=== PATIENT | male | born 1950 | race Caucasian/White ===

== ENCOUNTER 2017-04-24 23:28 | Emergency (ER) | payer OTHER ==
[~2017-04-24] VITALS: Ht 188 cm; Wt 127.0 kg
--- NOTE | 2017-04-24 23:50 | NUR ---
PT PRESENTED TO THE ER WITH A C/O ALL OVER BODY RASH X 2 DAYS. PT APPLIED CALMOSEPTINE TO RASH. PT AMBULATED OUT WITH A STEADY GAIT.
[2017-04-25] MEDS ORDERED: predniSONE 20 MG TABLET ONE (00:29)
[2017-04-25] MEDS ORDERED: diphenhydrAMINE HCL 25 MG CAPSULE ONE (00:29)
[2017-04-25] MEDS ORDERED: predniSONE 20 MG TABLET PO ONE (00:30)
[2017-04-25] MEDS ORDERED: diphenhydrAMINE HCL 25 MG CAPSULE PO ONE (00:30)
--- NOTE | 2017-04-25 00:35 | NUR ---
Patient discharged to home in stable condition. Written and verbal after care instructions given. Patient verbalizes understanding of instruction AND RX. PT REC'D MEDICATION ORDERED. PT'S LLE WOUND CLEANED AND DRESSED WITH NON ADHERENT DRSG AND KERLEX. PT AMBULATED OUT WITH A STEADY GAIT. PT'S FRIEND IS DRIVING PT HOME. VSS.
[2017-04-25 00:47] VITALS: BP 148/78
== END 2017-04-25 00:35 | disposition home or self-care (01) ==
LOC: ER 23:34
DX: L25.9 Unspecified contact dermatitis, unspecified cause (principal)
CPT/HCPCS: 99283; A4606; A6402; J7512; Q0163; Z7610

== ENCOUNTER 2019-02-26 02:56 | Emergency (ER) | payer MEDICARE ==
[~2019-02-26] VITALS: Ht 188 cm; Wt 125.6 kg
[2019-02-26 03:05] VITALS: BP 154/66
--- NOTE | 2019-02-26 03:05 | NUR ---
PT BIBS. C/O "NIGHTMARE, ROLLED OUT OF BED. HIT HEAD ONTO NIGHTSTAND" -KO -SOB. -DIZZY. AOX4. AMBULATORY. NAD NOTED. RESP EVEN AND UNLABORED. PT ON MONITOR IN BED 1. WILL CONTINUE TO MONITOR.
[2019-02-26] MEDS ORDERED: TDAP [DIPH/PERTUSSIS/TET] 0.5 ML VIAL IM ONE ×2 (03:24→03:30)
--- NOTE | 2019-02-26 03:55 | NUR ---
PT TAKEN TO RADIOLOGY VIA [facility].
--- NOTE | 2019-02-26 04:10 | NUR ---
PT RETURNED FROM RADIOLOGY [facility]IA [address] [facility]. PT TOLERATED WELL.
--- NOTE | 2019-02-26 05:17 | NUR ---
Patient discharged to home in stable condition. Written and verbal after care instructions given. Patient verbalizes understanding of instruction. PT AMBULATORY WITH STEADY GAIT.
== END 2019-02-26 05:18 | disposition home or self-care (01) ==
LOC: ER 02:56
DX: S01.81XA Laceration without foreign body of other part of head, initial encounter (principal); I10 Essential (primary) hypertension; J45.909 Unspecified asthma, uncomplicated; R51 Headache; Z88.0 Allergy status to penicillin; Z99.2 Dependence on renal dialysis; W22.8XXA Striking against or struck by other objects, initial encounter; Y93.89 Activity, other specified; Y92.89 Other specified places as the place of occurrence of the external cause; Y99.8 Other external cause status
CPT/HCPCS: 12011; 70450; 90471; 90715; 99284; A6403

== ENCOUNTER 2020-04-09 09:20 | Emergency (ER) | payer MEDICARE, OTHER ==
[~2020-04-09] VITALS: Ht 188 cm; Wt 121.1 kg
--- NOTE | 2020-04-09 09:30 | NUR ---
+L LE shortening. +DP/PT was given Fentanyl by medics en route. Pt made aware of plan of care
[2020-04-09] MEDS ORDERED: IV NS 0.9% 500 ML BAG IV ONE (10:00)
[2020-04-09 10:08] LABS: BASOPHILS # (AUTO) 0.1 /CMM (0.0-0.2); BASOPHILS % (AUTO) 0.4 % (0.0-2.0); CALCIUM, SERUM 9.8 mg/dL (8.5-10.1); CARBON DIOXIDE 23 mmol/L (21-32); CHLORIDE 102 mmol/L (98-107); EOSINOPHILS % (AUTO) 1.3 % (0.0-6.0); GLUCOSE 99 mg/dL (74-106); HEMATOCRIT 32 % (39-51); HEMOGLOBIN 10.2 g/dL (13.5-17.5); LYMPHOCYTES # (AUTO) 0.6 /CMM (0.8-4.8); LYMPHOCYTES % (AUTO) 4.8 % (20.0-44.0); MEAN CORPUSCULAR HGB CONC 32 g/dl (31.0-36.0); MEAN CORPUSCULAR VOLUME 82 fL (80-96); MONOCYTES # (AUTO) 0.5 /CMM (0.1-1.30); MONOCYTES % (AUTO) 4.5 % (2.0-12.0); NEUTROPHILS # (AUTO) 10.4 /CMM (1.8-8.9); PLATELET COUNT (AUTO) 376 /CMM (150-450); POTASSIUM 4.3 mmol/L (3.5-5.1); RED BLOOD CELL COUNT(AUTO) 3.94 MIL/uL (4.5-6.0); SODIUM SERUM 139 mmol/L (136-145); UREA NITROGEN, BLOOD 61 mg/dL (7-18); WHITE BLOOD COUNT (AUTO) 11.6 K/uL (4.3-11.0)
[2020-04-09 10:13] LABS: ALANINE AMINOTRANSFERASE 20 U/L (12-78); ALBUMIN 3.5 g/dL (3.4-5.0); ALKALINE PHOSPHATASE 250 U/L (46-116); ASPARTATE AMINOTRANSFERASE 34 U/L (15-37); BILIRUBIN,DIRECT 0.1 mg/dL (0.0-0.2); BILIRUBIN,TOTAL 0.3 mg/dL (0.2-1.0); LIPASE 170 U/L (73-393); TOTAL PROTEIN, SERUM 7.9 g/dL (6.4-8.2)
[2020-04-09] MEDS ORDERED: CHOL200074 PEG (10:17)
[2020-04-09] MEDS ORDERED: TEMA30CA PO (10:17)
[2020-04-09] MEDS ORDERED: ASPI-1169 PO (10:17)
[2020-04-09] MEDS ORDERED: FOLI0.8T23 PO (10:17)
[2020-04-09] MEDS ORDERED: BICA50TA8 PO (10:17)
[2020-04-09] MEDS ORDERED: AMIO200T5 PO (10:17)
[2020-04-09] MEDS ORDERED: LOSA25TA27 PO (10:17)
[2020-04-09] MEDS ORDERED: CARV12.5 PO (10:17)
--- NOTE | 2020-04-09 10:30 | NUR ---
Pt screaming in Pain during XR-medicated as ordered
[2020-04-09] MEDS ORDERED: HYDROMORPHONE 1 MG/1 ML DISP.SYRIN ONE (10:31)
[2020-04-09] MEDS ORDERED: HYDROMORPHONE 1 MG/1 ML DISP.SYRIN IV ONE (11:00)
--- NOTE | 2020-04-09 11:05 | NUR ---
CALLED NURSING SUP FOR M/S BED.
--- NOTE | 2020-04-09 12:03 | NUR ---
Sleeping easily awakened. NA updated w/plan of care by Dr Ramos
--- NOTE | 2020-04-09 12:25 | NUR ---
Dr Ramos at bedside to discuss MRi studies. Pt refusing at this time.
[2020-04-09 12:27] LABS: BILIRUBIN,URINE NEGATIVE (NEGATIVE); BLOOD, URINE NEGATIVE Ery/uL (NEGATIVE); COLOR,URINE YELLOW (YELLOW); LEUKOCYTE ESTERASE ,URINE NEGATIVE (NEGATIVE); NITRITE, URINE NEGATIVE (NEGATIVE); PH,URINE 5.5 (5.0-8.0); PROTEIN,URINE NEGATIVE (NEGATIVE); UGLUCOSE NEGATIVE (NEGATIVE); UROBILINOGEN,URINE 0.2 EU/dL (0.2)
[2020-04-09] MEDS ORDERED: IBUPROFEN 600 MG TABLET PO ONE (13:30)
--- NOTE | 2020-04-09 13:30 | NUR ---
Pt dozing on/off as soon as awake complains of pain. "seems like its coming back" notified w/orders
[2020-04-09] MEDS ORDERED: Z GUARD REMEDY 2 OZ OINT TP PRN (14:30)
[2020-04-09] MEDS ORDERED: Medication Not On Formulary EA (Folic Acid/Vitamin B Comp W-C (Rena-Vite Tablet) 0.8 MG) PO SCH (14:30)
[2020-04-09] MEDS ORDERED: CHOLECALCIFEROL 1,000 UNIT TABLET (VIT D3) PEG SCH (14:30)
[2020-04-09] MEDS ORDERED: ASPIRIN 81 MG TAB.CHEW PO SCH (14:30)
[2020-04-09] MEDS ORDERED: LOSARTAN POTASSIUM 25 MG TABLET PO SCH (14:30)
[2020-04-09] MEDS ORDERED: HYDROMORPHONE INJ 2 MG/ML DISP.SYRIN IV PRN (14:30)
[2020-04-09] MEDS ORDERED: AMIODARONE HCL 200 MG TABLET PO SCH (14:30)
[2020-04-09] MEDS ORDERED: MAGNESIUM HYDROXIDE 30 ML UDC PO PRN (14:30)
[2020-04-09] MEDS ORDERED: TEMAZEPAM 15 MG CAPSULE PO PRN (14:30)
[2020-04-09] MEDS ORDERED: ONDANSETRON HCL/PF 4 MG/2 ML VIAL IVP PRN (14:30)
[2020-04-09] MEDS ORDERED: MAG HYDROX/AL HYDROX/SIMETH 30 ML UDC PO PRN (14:30)
[2020-04-09] MEDS ORDERED: ACETAMINOPHEN 325 MG TABLET PO PRN (14:30)
[2020-04-09] MEDS ORDERED: IV 1/2NS 1000 ML 1,000 ML IV PRN (14:30)
[2020-04-09] MEDS ORDERED: HYDROCODONE/APAP 5/325MG TABLET ONE ×2 (15:46→20:44)
[2020-04-09] MEDS: HYDROCODONE/APAP 5/325MG TABLET PO PRN ×2 (15:52→20:50)
--- NOTE | 2020-04-09 16:25 | NUR ---
PER WOJCIECH PAUL . Patient will be transferred to [facility] Accepted by dr. Elizalde. Room 1523 phone# for report [phone]
--- NOTE | 2020-04-09 16:35 | NUR ---
TRANSPORTATION INFO: [facility] ETA 1812
--- NOTE | 2020-04-09 16:55 | NUR ---
Transfer Info: Transfer to: [facility] accepted By: Dr bishop Room: 1523 Report to RN: Alba Condition on transfer: Stable
[2020-04-09] MEDS ORDERED: CARVEDILOL 12.5 MG TABLET PO SCH (17:00)
--- NOTE | 2020-04-09 19:00 | NUR ---
Nurse Blanka So w/CLARICE Olivares for Continuity of Care
--- NOTE | 2020-04-09 19:05 | NUR ---
PT AAO4, VSS, RESPIRATIONS EVEN AND UNLABORED ON RA W/ NAD NOTED. PT COMPLAINS OF PAIN UPON MOVEMENT BUT TOLERABLE. PT CONNECTED TO THE REPAIR WELDER AND POX. WILL CONTINUE TO MONITOR
--- NOTE | 2020-04-09 19:52 | NUR ---
ETA [facility]
--- NOTE | 2020-04-09 20:31 | NUR ---
REPORT GIVEN TO EMS, [facility]. PT STABLE FOR TRANSFER. VS WNL.
[2020-04-09] MEDS ORDERED: ONDANSETRON HCL/PF 4 MG/2 ML VIAL ONE (20:55)
[2020-04-09] MEDS ORDERED: MORPHINE SULFATE INJ 2 MG/ML DISP.SYRIN ONE (20:55)
[2020-04-09] MEDS ORDERED: ONDANSETRON HCL/PF - ER 4 MG/2 ML VIAL IV ONE (21:00)
[2020-04-09] MEDS ORDERED: MORPHINE SULFATE INJ 2 MG/ML DISP.SYRIN IV ONE (21:00)
--- NOTE | 2020-04-09 21:18 | NUR ---
ATTEMPTED TO CALL [employer] TWICE. NO ANSWER
--- NOTE | 2020-04-09 21:19 | NUR ---
génesis from [facility] [phone], aware pt refused to be transferred to [facility] by [facility].
--- NOTE | 2020-04-09 21:24 | NUR ---
PT REFUSED TRANSPORT, [facility]
[2020-04-09] MEDS ORDERED: BICALUTAMIDE 50 MG TABLET PO SCH (22:00)
--- NOTE | 2020-04-09 22:17 | NUR ---
spoke to pt regarding plan of care. pt refused to be transferred d/t pain. risk and benefits explained x3. pt strongly refused.
--- NOTE | 2020-04-09 23:12 | NUR ---
spoke to [employer] [facility], clementine, will call pt regarding insurance and transport denial.
--- NOTE | 2020-04-09 23:19 | NUR ---
spoke dav, aware pt continues to refused bed. per cm pt lost his bed and will follow up tomorrow.
--- NOTE | 2020-04-09 23:34 | NUR ---
PER [facility] [phone], IF PATIENT STILL REFUSES TRANSFER, A DENIAL FORM IS NEEDED.
--- NOTE | 2020-04-09 23:45 | NUR ---
Spoke to WOJCIECH Garduno, will issue a insurance denial, call back #[phone], fax [phone]
--- NOTE | 2020-04-10 | NUR ---
PT REFUSED TO SIGN THE REFUSAL FORM AT THIS TIME. AWARE.
--- NOTE | 2020-04-10 02:36 | NUR ---
PT RESTING COMFORTABLY IN BED. VSS. NO ACUTE DISTRESS NOTED. WILL CONTINUE TO MONITOR
--- NOTE | 2020-04-10 03:02 | NUR ---
kassi capps from [facility] [phone], aware pt states he is ready to be transported to [facility]. waiting for call back from génesis for plan of care.
--- NOTE | 2020-04-10 03:11 | NUR ---
spoke to mariel from transfer center [phone]. case is closed and instructed to follow up with insurance to open case, in addition no beds available at this time.
--- NOTE | 2020-04-10 03:13 | NUR ---
spoke to Shaan per pt insurance, aware she needs to open the case and [facility] states no bed available. she will follow up in the morning.
--- NOTE | 2020-04-10 03:35 | NUR ---
Per Shaan [facility] Dr[phone] [facility] transport [phone] [facility] [id number]
--- NOTE | 2020-04-10 03:45 | NUR ---
REPORT GIVEN TO [facility]
--- NOTE | 2020-04-10 03:46 | NUR ---
called [employer] transport [phone], spoke to erik provided auth for transport. per erik unable to transfer pt. spoke to [facility], will call erik for transportation set up.
--- NOTE | 2020-04-10 03:53 | NUR ---
emelia cigar packer [employer] picker 6am [phone] [facility] [id number]
[2020-04-10 05:24] LABS: BASOPHILS % (AUTO) 0.6 % (0.0-2.0); EOSINOPHILS % (AUTO) 6.1 % (0.0-6.0); HEMATOCRIT 30 % (39-51); HEMOGLOBIN 9.6 g/dL (13.5-17.5); LYMPHOCYTES # (AUTO) 0.6 /CMM (0.8-4.8); LYMPHOCYTES % (AUTO) 7.8 % (20.0-44.0); MEAN CORPUSCULAR HGB CONC 33 g/dl (31.0-36.0); MEAN CORPUSCULAR VOLUME 80 fL (80-96); MONOCYTES # (AUTO) 0.5 /CMM (0.1-1.30); MONOCYTES % (AUTO) 6.8 % (2.0-12.0); NEUTROPHILS # (AUTO) 6.2 /CMM (1.8-8.9); NEUTROPHILS % (AUTO) 78.7 % (43.0-81.0); PLATELET COUNT (AUTO) 336 /CMM (150-450); WHITE BLOOD COUNT (AUTO) 7.9 K/uL (4.3-11.0)
[2020-04-10] MEDS ORDERED: MORPHINE SULFATE INJ 2 MG/ML DISP.SYRIN IV ONE (05:30)
[2020-04-10 05:36] LABS: ALBUMIN 3.1 g/dL (3.4-5.0); BILIRUBIN,TOTAL 0.4 mg/dL (0.2-1.0); CALCIUM, SERUM 8.9 mg/dL (8.5-10.1); CREATININE 3.7 mg/dL (0.6-1.3); MAGNESIUM 2.3 mg/dL (1.8-2.4); PHOSPHORUS 4.9 mg/dL (2.5-4.9); POTASSIUM 4.2 mmol/L (3.5-5.1); TOTAL PROTEIN, SERUM 7.1 g/dL (6.4-8.2)
[2020-04-10 05:47] LABS: THYROID STIMULATING HORMONE 1.342 uIU/mL (0.358-3.74)
[2020-04-10] MEDS ORDERED: MORPHINE SULFATE INJ 4 MG/ML DISP.SYRIN ONE (06:03)
--- NOTE | 2020-04-10 06:21 | NUR ---
REPORT GIVEN TO EMS. PT STABLE FOR TRANSFER
[2020-04-10 06:22] VITALS: BP 118/74
== END 2020-04-10 06:22 | disposition short-term general hospital (02) ==
LOC: ER 09:22
DX: M25.552 Pain in left hip (principal); Z90.5 Acquired absence of kidney; Z20.828 Contact with and (suspected) exposure to other viral communicable diseases; I48.91 Unspecified atrial fibrillation; J45.909 Unspecified asthma, uncomplicated; D68.59 Other primary thrombophilia; Z74.09 Other reduced mobility; Z85.46 Personal history of malignant neoplasm of prostate; N17.0 Acute kidney failure with tubular necrosis; I12.9 Hypertensive chronic kidney disease with stage 1 through stage 4 chronic kidney disease, or unspecified chronic kidney disease; N18.4 Chronic kidney disease, stage 4 (severe); Z91.81 History of falling; Z88.0 Allergy status to penicillin; D64.9 Anemia, unspecified; F39 Unspecified mood [affective] disorder
CPT/HCPCS: 36415 ×2; 51702; 71045; 73503; 80048; 80053; 80061; 80076; 81003; 83036; 83540; 83690; 83735; 84100; 84145; 84443; 84484; 85025 ×2; 85730; 87081; 87426; 93005; 96361; 96374; 96375; 96376; 99285; C9803; J1170; J2270 ×2; J2405 ×2; 73502